=== PATIENT | female | born 1940 | race Caucasian/White ===

== ENCOUNTER 2024-06-03 06:34 | Observation (INO) ==
--- NOTE | 2024-04-30 10:56 | PAT Medication Instructions ---
Medication Instructions Date of Service April 30, 2024 Home Medications Probiotic 1 cap PO QAM amlodipine 10 mg tablet (Norvasc) 10 mg PO QPM cholecalciferol (vitamin D3) 25 mcg (1,000 unit) capsule (Vitamin D3) 25 mcg PO QPM hydrochlorothiazide 25 mg tablet 25 mg PO QAM valsartan 160 mg tablet 160 mg PO QAM DO NOT take the morning of surgery Probiotic 1 cap PO QAM hydrochlorothiazide 25 mg tablet 25 mg PO QAM valsartan 160 mg tablet 160 mg PO QAM Take evening before surgery amlodipine 10 mg tablet (Norvasc) 10 mg PO QPM cholecalciferol (vitamin D3) 25 mcg (1,000 unit) capsule (Vitamin D3) 25 mcg PO QPM MORNING OF SURGERY: NOTHING TO EAT OR DRINK AFTER MIDNIGHT Other Notes If you have any questions please call us at [phone] or [phone] or [phone] or [phone]
--- NOTE | 2024-05-08 12:56 | Anesthesiology Consultation ---
Date of Service May 08, 2024 Assessment & Plan (1) Encounter for pre-operative examination: Chart Review Chart Review: Acceptable Risk for Surgery and Patient seen in Pre Admission Testing Pt currently scheduled as 23 hours observation. If surgeon decides to change patient to Same Day Joint, patient would be acceptable risk for MISAEL, pending patient is motivated, has good support and surgeon's office completes [facility] Day [facility] Program preop requirements. Per PAT appt on 05/08/24, no recent illness/disease exposures, illness related symptoms, or recent illness/disease positive tests. Will leave to surgeon's discretion if preop Covid testing needed Teaching & Discussion Pre-Anesthesia Teaching/Discussion Notes: Instructed NPO after midnight before surgery,except medications with 15 cc of water. Medication instructions provided according to the PAT guidelines. History Surgery Operation Date: 06/03/24 08:15 Proposed Procedures p Right Anterior Total Hip Arthroplasty - George Ellis, Height/Weight Height: 5 ft 4 in Weight: 65.6 kg Allergies Allergy/AdvReac Type Severity Reaction Status Date / Time amoxicillin Allergy Unknown HIVES Verified 04/29/24 07:30 clavulanic acid Allergy Unknown HIVES Verified 04/29/24 07:30 metoprolol Allergy Unknown RASH Verified 04/29/24 07:30 Medications Home Medications Medication Instructions Recorded Confirmed Last Taken Probiotic 1 cap PO QAM 04/29/24 04/29/24 Unknown amlodipine 10 mg tablet (Norvasc) 10 mg PO QPM 04/29/24 04/29/24 Unknown cholecalciferol (vitamin D3) 25 25 mcg PO QPM 04/29/24 04/29/24 Unknown mcg (1,000 unit) capsule (Vitamin D3) hydrochlorothiazide 25 mg tablet 25 mg PO QAM 04/29/24 04/29/24 Unknown valsartan 160 mg tablet 160 mg PO QAM 04/29/24 04/29/24 Unknown Past Medical History Medical History (Updated 05/13/24 @ 08:20 by Daly Roberts PA-C) History of palpitations - had work up around 2004- no issues noted - palpitations intermittent- stable/chronic Hx of basal cell carcinoma s/p excision Hx of constipation chronic Hx of squamous cell carcinoma s/p excision Hyperglycemia Hgb A1C 5.9 on 05/08/24 Hypertension Exercise / Class Metabolic Activity II 4-5 Yardwork/Stairs/Walk up hill (one flight of stairs - no chest pain or SOB ) Past Surgical History Surgical History History of cardiac cath ~2004, palpitations, [facility] [place], no stents; no cardio currently History of left breast biopsy benign History of tonsillectomy and adenoidectomy History of total left hip arthroplasty 12/2015, anterior w/ dr. 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 No specific trigger. Relieved with antacid. Unsure of reflux. No other symptoms. Very infrequent. Not related to exertion. Patient states she is active. No chest pain or tightness. Discussed with Dr. Camara- patient can proceed Patient denies chest pain, shortness of breath at rest, reflux, cough, wheezing, palpitations. No hx of seizures, stroke, [place], apnea/snoring. No hx of blood clots or blood transfusions Physical Exam Vital Signs VITALS BP 120/68 P 66 TEMP 98.0 SP02 99% RESP 16 Constitutional no acute distress ENMT Mouth: no TMJ clicking Thyromental Distance: < 3.5 Finger Breadths (3.0) Mallampati Class: III Upper and lower partial dentures Neck neck extension not limited Respiratory normal respiratory effort; no respiratory distress Auscultation: lungs clear to auscultation bilaterally; no wheezes Cardiovascular Rate/Rhythm: regular rate and regular rhythm Heart Sounds: no murmur Vessels: no carotid bruit Musculoskeletal Spine: no pain with cervical ROM Extremities: extremities normal to inspection Psychiatric Orientation: alert Lab Results Anesthesia Preop Results Results Anesthesia Widget: WBC 5.22 K/ul (4.8-10.8) 05/08/24 Hgb 12.0 g/dl (12.0-16.0) 05/08/24 Hct 34.8 % (37.0-47.0) L 05/08/24 Plt 338 K/uL (130-400) 05/08/24 Na 136 mmol/L (136-145) 05/08/24 K 3.6 mmol/L (3.5-5.1) 05/08/24 Cl 98 mmol/L (98-107) 05/08/24 CO2 31 mmol/L (21-32) 05/08/24 BUN 22 mg/dl (6-23) 05/08/24 Creat 0.85 mg/dl (0.6-1.2) 05/08/24 Glucose Level 184 mg/dl (70-99(Fasting)) H 05/08/24 PT 12.2 Seconds (9.0-12.0) H 05/08/24 PTT 27 Seconds (21-31) 05/08/24 INR 1.1 (0.9-1.1) 05/08/24 HA1c 5.9 % (4.5-5.6) H 05/08/24 Blood Type O Positive 05/08/24 Antibody Screen NEGATIVE 05/08/24 Testing Electrocardiogram Date: 05/07/24 Findings: + NSR @ (63bpm) Normal EKG per cardio Chest X-Ray Date: 05/08/24 Findings: + NAD FINDINGS: Heart size and pulmonary vasculature are normal. Lungs are hyperexpanded. No effusion or consolidation. Stable scoliosis
[~2024-06-03 06:34] MED LIST: BUPIVACAINE 0.5 % 5 MG/1 ML PF 10ML VIAL ONE
--- NOTE | 2024-06-03 06:46 | History & Physical Bridge Note ---
Date of Service June 03, 2024 History & Physical Bridge Note I have examined the patient, reviewed the History & Physical and in the interval since the performance of the History & Physical I have noted the following changes of clinical significance: no changes noted
[2024-06-03] MEDS ORDERED: LIDOCAINE 2% 2 ML VIAL/AMP(20MG/ML) INFIL ONE (06:48)
[2024-06-03] MEDS ORDERED: fentaNYL citrate PF 100 MCG/2 ML VIAL ONE (06:48)
[2024-06-03] MEDS ORDERED: ONDANSETRON INJ 2 MG/ML 2 ML VIAL ONE (06:48)
[2024-06-03] MEDS ORDERED: MIDAZOLAM HCL 1 MG/ML 2ML VIAL ONE (06:48)
[2024-06-03] MEDS ORDERED: PROPOFOL IV EMULSION 10 MG/ML 20 ML VIAL IV ONE (06:48)
[2024-06-03] MEDS ORDERED: DEXAMETHASONE SOD INJ 4 MG/ML VIAL ONE (06:48)
[2024-06-03] MEDS ORDERED: GLYCOPYRROLATE 0.2 MG/ML VIAL ONE (06:51)
[2024-06-03] MEDS: dexAMETHasone**PF** 10 MG/ML VIAL IV SCH (07:10)
[2024-06-03] MEDS: LR 60ML/HR IV SCH (07:10)
[2024-06-03] MEDS: LR 500ML BOLUS, THEN 15ML/HR IV SCH (07:10)
[2024-06-03] MEDS: GABAPENTIN 300 MG CAP PO SCH (07:10)
[2024-06-03] MEDS: ACETAMINOPHEN 500 MG TAB PO SCH (07:11)
[2024-06-03] MEDS: FAMOTIDINE 20 MG TAB PO SCH (07:11)
[2024-06-03] MEDS ORDERED: HYDROmorphone INJ 1 MG/ML SYRINGE IV PRN (07:40)
[2024-06-03] MEDS ORDERED: ATROPINE SULFATE 0.1 MG/ML 10ML SYR IV PRN (07:40)
[2024-06-03] MEDS ORDERED: PROMETHAZINE HCL 6.25 MG in SODIUM CHLORIDE 0.9% 50 ML IV PRN (07:40)
[2024-06-03] MEDS ORDERED: ePHEDrine sulfate 50 MG/ML AMP IV PRN (07:40)
[2024-06-03] MEDS: TRANEXAMIC ACID 1,000 MG **IV Pre-op IV SCH (08:04)
[2024-06-03] MEDS: ceFAZolin 2000MG 2,000 MG/15 ML SYR IV SCH ×2 (08:23→15:37)
[2024-06-03] MEDS: ROPIV 0.5% 246mg, Ketorolac 30mg, EPINEPHrine 0.5mg in NSS INFIL SCH (08:52)
[2024-06-03] MEDS: ORTHO JOINT ANESTHETIC ONE (08:53)
[2024-06-03] MEDS: TRANEXAMIC ACID 1,000 MG **IV Intra-op IV SCH (09:16)
--- NOTE | 2024-06-03 09:28 | Operative Report ---
PG Post Operative Report Pre & Post Diagnosis Operation Date: 06/03/24 08:00 Pre-Op Diagnosis: Arthritis Hip Right Post-Op Diagnosis: Arthritis Hip Right I identified the patient and participated in the time-out.: Yes Procedure Operation Date: 06/03/24 08:00 Actual Procedures p Right Anterior Total Hip Arthroplasty(Right) - George Ellis DO Surgeon George Ellis DO Barber Apprentice Nghia Charles PA-C Estimated Blood Loss 200 Findings Consistent with Post-Op Diagnosis Specimens Right femoral head Description of Procedure Implants used I used a ZimmerBiomet total hip arthroplasty system with a size 3 standard offset Avenir Complete stem, a 50 mm G7 cup with a 25mm screw, an E1 polyethylene liner, a 36 mm ceramic head with a -3.5 neck. Margi arrived at the hospital for the above procedure. She was seen in the preoperative holding area and the operative extremity was identified and signed. She was given a spinal anesthetic, a preoperative antibiotic, and TXA. She was then taken back to the operating room and laid on the table in the supine position. She was given basic sedation. The operative leg was secured to a Puristst leg positioner. The hip was then prepped and draped in sterile fashion. A timeout was done and the patient and the operative extremity was properly identified. An anterior approach was used. Dissection was taken down through the fascia and the tensor muscle belly was retracted laterally and the rectus was retracted medially. The circumflex vessels were identified and ligated. The capsule was then incised and tagged for later repair. The femoral neck was then cut and the femoral head was removed. The acetabulum was exposed. Time was spent doing a complete circumferential labral release. Sequential reaming of the acetabulum up to a size 49 reamer was done. Final reamings were done under fluoroscopy to ensure appropriate version. A Biomet 50 mm G7 cup was then impacted into place. A single 25 mm screw was placed. The E1 polyethylene liner was then snapped into place. Surrounding soft tissues were then injected with 100 cc of an orthopedic pain control cocktail. The proximal femur was then exposed. Sequential broaching up to a size 3 broach was done. Off that broach a size 36 head with a -3.5 neck was trialed. The hip was reduced and fluoroscopic images showed anatomic alignment of the implants in acceptable length. The broach was removed. The final size 3 standard offset Avenir Complete stem was then impacted into place. A ceramic 36 mm head with a -3.5 neck was then impacted onto the stem and the hip was reduced. Final fluoroscopic images showed anatomic alignment of the hip. The capsule was then closed with #1 Vicryl suture. A dilute betadyne lavage was then done for 3 minutes. The joint was then irrigated with normal saline solution. The fascia was closed with #1 PDS suture. Skin was closed with 2-0 Vicryl, helena, and a Silverlon dressing. She was then transferred to a hospital bed and taken to the post anesthesia care unit in stable condition. She tolerated the procedure well. Nghia Charles PA-C, was present for the entire procedure. He was critical for patient positioning, prepping, draping, retraction exposure, wound closure and application of sterile dressing. I attest to the content of the Intraoperative Record and any orders documented therein. Any exceptions are noted below.
--- NOTE | 2024-06-03 10:44 | XRay Report ---
XR hip 1V RT w pelvis CLINICAL HISTORY: IN PACU - Post Surgical COMPARISON: None FINDINGS: Bilateral hip prostheses show no hardware complication. There is expected soft tissue gas on the right with skin helena. Low pelvic calcifications likely represent calcified uterine fibroids . IMPRESSION: Unremarkable postoperative exam. ACT 112: Negative or not required by law. Electronically signed by: James Teixeira M.D. 06/03/2024 10:43 AM
--- NOTE | 2024-06-03 10:54 | Fluoroscopy Report ---
FL hip RT 1V CLINICAL HISTORY: Right anterior total hip arthroplasty COMPARISON STUDY: None FLUOROSCOPY TIME: 12 seconds FLUOROSCOPY IMAGES: 1 EXPOSURE DOSE: 1 mGy FINDINGS: Fluoroscopy was provided for right hip prosthesis. IMPRESSION: Intraoperative fluoroscopy. ACT 112: Negative or not required by law. Electronically signed by: James Teixeira M.D. 06/03/2024 10:52 AM
[2024-06-03] MEDS ORDERED: MAGNESIUM HYDROXIDE SUSP 30 ML UDC PO PRN (11:08)
[2024-06-03] MEDS ORDERED: ONDANSETRON INJ 2 MG/ML 2 ML VIAL IV PRN (11:08)
[2024-06-03] MEDS ORDERED: bisacodyL 10 MG SUPP PR PRN (11:08)
[2024-06-03] MEDS ORDERED: HYDROmorphone INJ 0.5 MG/0.5 ML SYR IV PRN (11:08)
[2024-06-03] MEDS ORDERED: METOCLOPRAMIDE HCL INJ 5 MG/ML 2 ML VIAL IV PRN (11:08)
[2024-06-03] MEDS ORDERED: NALOXONE HCL 0.4 MG/1 ML VIAL/CARP IV PRN (11:08)
[2024-06-03] MEDS: KETOROLAC TROMETHAMINE 15 MG/ML VIAL IV SCH (12:09)
--- NOTE | 2024-06-03 13:24 | Anesthesiology Progress Note ---
Date of Service June 03, 2024 Anesthesia Post Procedure Vital Signs Vital Signs: Temp Pulse Pulse Pulse Resp BP Pulse Ox 06/03/24 13:04 69 12 113/68 94 06/03/24 11:32 36.2 C L 85 16 99/68 L 99 06/03/24 11:00 06/03/24 11:00 36.4 C L 64 16 120/72 96 06/03/24 10:45 61 12 110/56 L 98 06/03/24 10:30 36.4 C L 70 12 119/57 L 100 06/03/24 10:20 65 14 127/60 99 06/03/24 10:10 65 12 112/58 L 95 06/03/24 10:00 68 12 117/61 95 06/03/24 09:49 36.1 C L 84 12 121/60 98 06/03/24 06:48 36.8 C 83 18 161/80 H 96 O2 Del Method O2 Flow Rate 06/03/24 13:04 Room Air 06/03/24 11:32 Room Air 06/03/24 11:00 Nasal Cannula 2 06/03/24 11:00 Nasal Cannula 2 06/03/24 10:45 Nasal Cannula 2 06/03/24 10:30 Nasal Cannula 2 06/03/24 10:20 Nasal Cannula 2 06/03/24 10:10 Room Air 06/03/24 10:00 Room Air 06/03/24 09:49 Room Air 06/03/24 06:48 Room Air Transfer of Care Handoff Completed per policy Notes Mental Status: alert / awake / arousable and participated in evaluation Nausea / Vomiting: adequately controlled Pain: adequately controlled Airway Patency, RR, SpO2: stable & adequate BP & HR: stable & adequate Hydration State: stable & adequate Anesthetic Complications: no major complications apparent and Pt Satisfied with anesthetic care
[2024-06-03] MEDS: SENNA 8.6 MG TAB PO SCH (20:20)
[2024-06-03] MEDS: ASPIRIN 81 MG ECTAB PO SCH (20:20)
[2024-06-03] MEDS: DOCUSATE SODIUM 100 MG CAP PO SCH (20:20)
[2024-06-03] MEDS: amLODIPine BESYLATE 5 MG TAB PO SCH (20:20)
[2024-06-04] MEDS: ACETAMINOPHEN 500 MG TAB PO PRN (02:33)
--- NOTE | 2024-06-04 06:28 | Orthopedic Progress Note ---
Date of Service June 04, 2024 Assessment & Plan (1) Status post right hip replacement: Doing well. Pain controlled. PT/OT wbat dvt prophylaxis: teds, scd's, aspirin d/c planning: home with home health after therapy today follow up with Dr Ellis/Luis Bowman in 2-3 weeks Subjective .84 year old patient POD 1 from right samson with Dr Ellis. Doing well. Getting some hip pain. Has been able to get out of bed and is pleased with things so far. Review of Systems All systems reviewed & are unremarkable except as noted in HPI & below. Physical Exam . alert and oriented. NAD. Dressing clean, dry, intact. Thigh nontender. Able to dorsiflex and plantarflex, able to lift leg. NVI VSS Results & Data Results & Data Laboratory Results . Diagnostic Findings . PG Care Time/CCT Total # of Minutes Spent Total Time Spent with Patient: Total time spent is greater than 50% in coordination of care (as documented) at patient's floor/unit and/or counseling patient: Coding Level of Care Code 29487 Post Operative Follow-Up Diagnoses Status post right hip replacement Z96.641
[2024-06-04] MEDS: VALSARTAN 80 MG TAB PO SCH (07:54)
[2024-06-04] MEDS: MULTIVITAMIN TAB PO SCH (07:54)
[2024-06-04] MEDS: dexAMETHasone 4 MG TAB PO SCH (07:54)
[2024-06-04] MEDS: hydroCHLOROthiazide 25 MG TAB PO SCH (07:55)
[2024-06-04] MEDS: oxyCODONE HCL IR 5 MG TAB (IMMEDIATE RELEASE) PO PRN (07:58)
[2024-06-04 07:59] VITALS: BP 136/65; PULSE 64; RESP 20; TEMP 98.4; O2SAT 92
--- NOTE | 2024-06-05 16:08 | Discharge Summary ---
Date of Service June 05, 2024 Admission HPI (Per Admitting) Margi is a pleasant 84-year-old female who had a left hip replaced by Dr. Rosas several years ago. She is now dealing with right hip pain. X-rays and clinical exam have been diagnostic for advanced arthritis of the right hip. After failing conservative treatment, she presents to the office today to discuss hip replacement surgery. We discussed diagnosis and treatment options in the office today. She is struggling with the right hip. She would like to proceed with a right anterior total hip arthroplasty. She understands the risks, benefits, and alternatives for the procedure and is electing to proceed. Questions were answered and consents were signed. We went over her medical history with her in detail. She is not a diabetic and she is not on any blood thinners. She has no history of blood clots. I think it is safe to proceed with surgery. I will see her back in the office postoperatively. Admission Exam (Per Admitting) Appearance: This is a well-developed, well-nourished female in no apparent distress.Musculoskeletal: Physical exam of the right hip shows decreased range of motion. She has pain with forced internal and external rotation. She ambulates independently. Principal Diagnosis Same as "Discharge Diagnosis" noted below under Discharge Instructions. Discharge Exam . alert and oriented. NAD. Dressing clean, dry, intact. Thigh nontender. Able to dorsiflex and plantarflex, able to lift leg. NVI VSS Discharge Data Procedures Performed Operation Date: 06/03/24 08:00 Actual Procedures p Right Anterior Total Hip Arthroplasty(Right) - George Ellis DO Ordered Studies 06/03/24 06:30 FL hip RT 1V Routine Hospital Course (1) Status post right hip replacement: Plan On June 03, 2024 Margi arrived at [facility] operating room and underwent a right total hip replacement without complications. Patient had a spinal anesthetic and conscious sedation for the procedure. Postoperatively, patient was transferred to the general orthopedic floor in stable condition and eventually started onto aspirin 81 mg twice daily for DVT prophylaxis as appropriate. Patient's hospital course was uneventful. On postoperative day #1, patient's vital signs were stable and pain was well-controlled. Patient was able to participate well with physical therapy, safely performing the necessary ambulation and range of motion exercises and properly demonstrating ADL tasks. Patient was then discharged home in stable condition. Patient will follow-up with orthopedics in 2 to 3 weeks for postoperative care. PG Care Time/CCT Total # of Minutes Spent Total Time Spent with Patient: Total time spent is greater than 50% in coordination of care (as documented) at patient's floor/unit and/or counseling patient: Discharge Plan Discharge Items Patient Disposition: Home - Self-Care Reason For Visit: Arthritis Hip Right Discharge Diagnosis: Right hip replacement Activity: Per Instructions section Non-emergency contact: Surgeon Call non-emergency contact if: your wound has increased redness and your wound has increased drainage Follow-up/Referrals: Kimber Alejo MD [Primary Care Provider] - Diet: Regular Addtl Attending Provider Instructions: Activity and Therapy Recommendations: * If you are using [facility] then therapy will be provided at your home until they feel you have accomplished all of your goals. * If you are using [facility] then Physical Therapy will be provided until they feel you are ready to start Outpatient Physical Therapy. * If you are not using home therapy then Outpatient Physical Therapy should start about 3-5 days from your day of surgery. Therapy will last about 6-10 weeks * You were shown a series of exercises in the hospital. Do these exercises three times each day including the exercises you were shown in physical therapy. * Get up and walk several times each day.~ For the first four weeks, try not to stand or walk for more than one hour at a time. If you do stand or walk for more than one hour, you will not hurt anything, but your leg will likely swell .~~ * As you feel comfortable, you may change from the walker or crutches to a cane and~then to independent walking. Medications: * Narcotic You will likely be sent home from the hospital with a prescription for the narcotic pain medication that worked best throughout your stay. * Cefadroxil -take the antibiotic twice a day for 10 days to help prevent infection. * Aspirin Most patients will be required to take Aspirin 81mg twice a day for 6 weeks after surgery. This is obtained [id number] and a prescription is not necessary. * Other medications may be prescribed for specific circumstances. If you have any questions, please call the office at . * Resume previous home medications unless otherwise instructed TEDs/Elastic Stockings: The white elastic stockings help limit swelling and prevent blood clots from forming in your legs. The more you wear them, the more they work. Wear them for 2 weeks. Dressing Care: Leave the Silverlon dressing in place for 7 days. After 7 days you may remove the dressing. If the incision is not draining then you may leave the helena open to air. If there is a little bit of drainage or if the helena are getting stuck on your clothing then cover the incision with a dry dressing. The helena will be removed at your 2 week follow-up appointment. Showering: You may shower with the Silverlon dressing in place. Do not let the shower spray hit the dressing directly. Pat the Silverlon dressing dry. If the dressing becomes wet underneath, then simply remove the dressing. Keep the incision dry until you are 7 days out from the day of surgery. After 7 days you may remove the Silverlon dressing and shower with the helena exposed. Let soapy water run over the helena and pat them dry. Do not scrub or soak the incision. Diet: You may resume your previous diet. Things To Watch For: * Drainage from the incision site that occurs more than one week after your surgery. * Increased redness at the incision site. * Fever above 102 degrees Fahrenheit. * Unusual chest pain or shortness of breath. * Call [facility] at with any of the above problems Follow-Up Visit: Follow-up with Dr. Ellis's office 2-3 weeks after your day of surgery. We will remove your helena and answer any questions. If you have any additional questions or concerns, Dr Ellis is usually in the office at the same time and will be available An appointment was probably scheduled when you signed-up for surgery in the office. If you have any questions call Office Instructions: More detailed instructions as well as Frequently Asked Questions were provided in a folder by our office when you signed-up for surgery. Please review these instructions when you get home. If you have any further questions or concerns, please feel free to call the office at [phone] Pending Studies at Discharge: No Stand-Alone Forms: [facility] [employer], Smoking Cessation Medications and DC Order Prescriptions: New aspirin 81 mg Tablet,Delayed Release (Dr/Ec) 81 mg PO BID 42 Days Qty: 84 0RF cefadroxil 500 mg capsule 500 mg PO BID 10 Days Qty: 20 0RF oxycodone 5 mg tablet 5 mg PO Q6H PRN (Reason: pain) Qty: 30 0RF Continued amlodipine [Norvasc] 10 mg Tablet 10 mg PO QPM hydrochlorothiazide 25 mg Tablet 25 mg PO QAM valsartan 160 mg Tablet 160 mg PO QAM cholecalciferol (vitamin D3) [Vitamin D3] 25 mcg (1,000 unit) Capsule 25 mcg PO QPM Probiotic 1 cap PO QAM Discharge Orders: Discharge Order (Routine); Ordered 06/04/24 Ordered By: Amaury Mendoza/Other Patient Handouts: DVT Post Op Prevention Admission Data Admit Date/Time: 06/03/24 09:31 Attending Provider: George Ellis Admit Provider: George Ellis Primary Care Provider: Kimber Alejo Other Interventions: Discharge Summary Assessment (RN) Last Done: 06/04/24 09:52
== END 2024-06-04 10:55 | disposition home or self-care (01) ==
LOC: 3N 06:34 → ASU 06:34